=== PATIENT | male | born 1945 | race Caucasian/White ===

== ENCOUNTER 2018-06-30 07:29 | Emergency (ER) | payer MEDICARE, OTHER, SELFPAY ==
[2018-06-30] VITALS (7 sets, daily range): BP systolic 137–178; BP diastolic 80–90; PULSE 85–97; RESP 20–22; TEMP 36.7; O2SAT 90–95; BMI 29.7
--- NOTE | 2018-06-30 07:35 | ED.SOB ---
HPI - SOB/Dyspnea General Chief Complaint: Upper Respiratory Symptoms Stated Complaint: SOB; states cardiac ablasion done Time Seen by Provider: 06/30/18 07:33 Source: patient Mode of arrival: ambulatory Limitations: no limitations History of Present Illness Patient is a 72-year-old male here for evaluation of what he describes as not being able to take a deep breath. Last he underwent a ablation for the correction of atrial fibrillation. This was done at [facility]. He had a KELLY prior to that. He is currently on anticoagulation. He states that the procedure was successful. He states that since then he has had episodes where he feels like he cannot get a deep breath. He is not having any chest pain. No palpitations. He states that prior to the procedure he did have episodes similar to this but he feels like since the procedure they have become more frequent and lasting longer. He came in this morning because he had an episode that lasted longer than 45 min. Patient states that in the past he has been told that he had COPD but then another physician told him that he did not. He does have a smoking history. He also has sleep apnea but is not on a CPAP machine. Has not noticed any lower extremity swelling. Occasionally has problems with dyspnea on exertion. Related Data Home Medications Medication Instructions Recorded Confirmed simvastatin [Zocor] 20 mg PO HS #0 06/03/12 metformin 1,000 mg PO BIDCC #0 09/18/17 Previous Rx's Medication Instructions Recorded furosemide [Lasix] 40 mg PO DAILY PRN #60 tab 06/30/18 Allergies Allergy/AdvReac Type Severity Reaction Status Date / Time No Known Drug Allergies Allergy Verified 06/30/18 07:50 Review of Systems Constitutional Denies fever(s) and Denies headache(s) Eyes Denies diplopia ENT Ears, Nose, Mouth, and Throat: Denies vertigo and Denies headache(s) Cardiovascular Denies chest pain, Denies syncope, Denies palpitations, Reports dyspnea and Reports dyspnea on exertion Respiratory Reports cough, Reports dyspnea and Reports dyspnea on exertion Gastrointestinal Gastrointestinal: Denies change in bowel habits Genitourinary Denies dysuria Musculoskeletal Denies myalgias and Denies arthralgias Integumentary/Breasts Denies lesions and Denies rash Neurologic Denies vertigo, Denies syncope and Denies headache(s) Endocrine Denies palpitations Hematologic/Lymphatic Comments: Currently on anticoagulation Allergic/Immunologic Denies urticaria PFSH Medical History Atrial fibrillation (Acute) Sleep apnea (Acute) Social History Smoking Status: Former smoker Exam Initial Vital Signs Initial Vital Signs: Vital Signs Temperature 98.1 F 06/30/18 07:33 Pulse Rate 90 06/30/18 07:33 Respiratory Rate 20 06/30/18 07:33 Blood Pressure 178/90 H 06/30/18 07:33 Pulse Oximetry 90 L 06/30/18 07:33 Const General: cooperative, comfortable, well developed, well groomed and No acute distress Orientation: alert, awake and oriented x3 HENMT Head: normal to inspection and normocephalic Resp Effort & Inspection: not labored, no retractions, tachypneic, no tracheal deviation and No prolonged expiratory phase Auscultation: rhonchi Cardio Rate: regular rate Rhythm: regular rhythm Pulses: radial pulses present GI Inspection: distended Palpation: soft, No firm and No tender Skin Lesions: no lesions Rashes: no rashes Neuro General: alert, awake and oriented x3 Extrem General: normal to inspection and capillary refill normal Psych Appearance: grossly normal and well kempt Course Orders Ordered: ED Orders 06/30/18 07:34 XR chest 1V Stat EKG-12 Lead Stat 06/30/18 07:40 RT Respiratory Nebulizer Treat PRN 06/30/18 07:46 B Type Natriuretic Peptide Stat Complete Blood Count AUTO DIFF Stat Comprehensive Metabolic Panel Stat Troponin I Stat 06/30/18 08:48 RT Respiratory Nebulizer Treat PRN Albuterol/Ipratropium (Duoneb) 3 ml INH NOW PRN PRN Reason: PRN WHILE IN ER. Stop: 07/01/18 07:40 Last Admin: 06/30/18 07:50 Dose: 3 ml Discontinued Medications Albuterol/Ipratropium (Duoneb) 3 ml INH NOW ONE Stop: 06/30/18 08:50 Last Admin: 06/30/18 07:40 Dose: 3 ml Furosemide (Lasix) 40 mg IV NOW ONE Stop: 06/30/18 09:06 Last Admin: 06/30/18 09:50 Dose: 40 mg Vital Signs - 8 hr 06/30/18 07:33 06/30/18 07:40 06/30/18 07:50 Temperature 98.1 F Pulse Rate 90 97 H 95 H Respiratory Rate 20 22 20 Blood Pressure 178/90 H Blood Pressure [Right Arm] Pulse Oximetry 90 L 93 95 06/30/18 09:30 06/30/18 10:00 Temperature Pulse Rate 95 H Respiratory Rate 22 Blood Pressure Blood Pressure [Right Arm] 141/86 H 137/80 Pulse Oximetry 92 MDM - SOB/Dyspnea Medical Records Attestation: I reviewed the patient's medical records. Lab Data Attestation: I reviewed the patient's lab results. Result diagrams: 06/30/18 07:46 06/30/18 07:46 Lab Results 06/30/18 06/30/18 Range/Units 07:46 07:46 WBC 10.6 (4.5-11.0) X10^3/uL RBC 3.99 L (4.5-5.9) X10^6/uL Hgb 13.0 L (13.5-17.5) g/dL Hct 38.2 L (41-53) % MCV 95.7 (80-100) fL MCH 32.7 (26-34) PG MCHC 34.2 (30-36) % RDW 13.4 (11.6-14.8) % Plt Count 170 (150-400) X10^3/uL Neut % (Auto) 84.0 H (50-75) % Lymph % (Auto) 6.4 L (25-40) % Hendricks % (Auto) 8.1 (3-14) % Eos % (Auto) 1.0 L (2-4) % Baso % (Auto) 0.5 (0-2) % Neut # (Auto) 9000 H (4549-5536) /uL Lymph # (Auto) 700 L (9848-8640) /uL Hendricks # (Auto) 900 (0-900) /uL Eos # (Auto) 100 (0-450) /uL Baso # (Auto) 100 (0-100) /uL Sodium 136 L (137-145) mmol/L Potassium 4.5 (3.4-5.1) mmol/L Chloride 100 (98-107) mmol/L Carbon Dioxide 29 (22-32) mmol/L BUN 16 (9-20) mg/dL Creatinine 0.80 (0.66-1.25) mg/dL Estimated GFR > 60.0 (>60) mL/min BUN/Creatinine Ratio 20.0 (6-22) Glucose 177 H (80-110) mg/dL Calcium 9.0 (8.4-10.2) mg/dL Total Bilirubin 1.6 H (0.2-1.3) mg/dL AST 27 (17-59) IU/L ALT 31 (21-72) IU/L Alkaline Phosphatase 68 (38-126) U/L Troponin I 0.501 H* (0.01-0.034) ng/mL B-Natriuretic Peptide 164 H (<100) Total Protein 7.8 (6.3-8.2) g/dL Albumin 4.4 (3.5-5.0) g/dL Globulin 3.4 (1.7-4.1) g/dL Albumin/Globulin Ratio 1.3 (1.0-2.8) Imaging Data Chest x-ray: Radiologist's impression: [address] [address] XRay Report Signed Patient: Mahin Valverde [facility]#: [id number] : 8Acct:[id number] Age/Sex: 72 / MDate of Service: 06/30/18 Loc: ED Accession Number: [id number] Procedure: XR chest 1V Ordering Provider: Alex Hugo D.O. PROCEDURE: XR CHEST 1V INDICATIONS: SOB TECHNIQUE: One view of the chest was acquired. COMPARISON: None. FINDINGS: Surgical changes and devices: None. Lungs and pleura: No pleural effusions or pneumothorax. Diffuse interstitial infiltrates bilaterally. Mediastinum: Mediastinal contours appear normal. Heart size is within normal limits. Bones and chest wall: No suspicious bony lesions. Overlying soft tissues appear unremarkable. IMPRESSION: Bilateral diffuse interstitial infiltrates may be secondary to interstitial pneumonia or pulmonary edema. Dictated by: Jacky Garcia M.D. on 06/30/2018 at 8:42 Approved by: Jacky Garcia M.D. on 06/30/2018 at 8:43 ECG Data Attestation: I personally reviewed and interpreted this ECG as follows: Prior ECG tracings: not available for review Interpretation: Sinus rhythm Ventricular rate of 93 Frequent PACs Normal axis Normal QRS Normal QTC No ST T wave changes MDM Narrative Medical decision making narrative: Patient had vast improvement if not resolution of his symptoms after 2 nebulizer treatments here in the emergency department. He is not having any chest pain. He does not have any ischemic changes on his EKG. Does have an elevated troponin however after discussion with Dr. Mayer with Cardiology at [facility] I do suspect that this is secondary to the ablation that he had last . I suspect his symptoms today are pulmonary. He is on anticoagulation so I have low suspicion for pulmonary embolism. He was given Lasix here in the emergency department after recommendation for Dr. Mayer. Will send home with a prescription for this medication. Also sent home with a prescription for an albuterol inhaler. He has an appointment with his development coordinator on Sunday of this week. He was given return precautions. Both he and his family who were at bedside expressed understanding and agreement plan. Discharge Plan Departure Patient Disposition: Home Clinical Impression: Breath shortness Instructions: DI for Shortness of Breath Activity Restrictions/Additional Instructions: Keep your scheduled appointment with your development coordinator this week. Take the Lasix/furosemide like we discussed. Also use the albuterol like we discussed. Return to the emergency department for any new or worsening symptoms Prescriptions: New furosemide [Lasix] 20 mg tablet 40 mg PO DAILY PRN (Reason: shortness of breath) Qty: 60 RF: 0 No Action simvastatin [Zocor] 20 MG tablet 20 mg PO HS Qty: 0 RF: 0 metformin 1,000 MG tablet 1,000 mg PO BIDCC Qty: 0 RF: 0
[2018-06-30] MEDS: ALBUTEROL/IPRATROPIUM 3 ML AMPUL INH ×2 (07:40→07:50)
--- NOTE | 2018-06-30 07:55 | PC.NURSE ---
on arrival dyspneic on exertion, sat 90% on ra, breath sound diminished, denies lower ext edema. denies coughing.
[2018-06-30 07:56] LABS: Add Manual Diff / Slide Review NO; Basophils Absolute Auto 100 /uL (0-100); Basophils Percent Auto 0.5 % (0-2); Eosinophils Absolute Auto 100 /uL (0-450); Hematocrit 38.2 % (41-53); Lymphocytes Absolute Auto 700 /uL (1100-4500); Lymphocytes Percent Auto 6.4 % (25-40); Mean Corpuscular HGB Conc 34.2 % (30-36); Mean Corpuscular Hemoglobin 32.7 PG (26-34); Mean Corpuscular Volume 95.7 fL (80-100); Monocytes Absolute Auto 900 /uL (0-900); Monocytes Percent Auto 8.1 % (3-14); Neutrophils Absolute Auto 9000 /uL (1500-7000); Platelet Count 170 X10^3/uL (150-400); Red Blood Cell Count 3.99 X10^6/uL (4.5-5.9); Red Cell Distribution Width 13.4 % (11.6-14.8); White Blood Cell Count 10.6 X10^3/uL (4.5-11.0)
[2018-06-30 08:06] LABS: Alanine Aminotransferase 31 IU/L (21-72); Albumin 4.4 g/dL (3.5-5.0); Albumin Globulin Ratio 1.3 (1.0-2.8); Alkaline Phosphatase 68 U/L (38-126); Aspartate Aminotransferase 27 IU/L (17-59); Bilirubin Total 1.6 mg/dL (0.2-1.3); Blood Urea Nitrogen 16 mg/dL (9-20); Carbon Dioxide 29 mmol/L (22-32); Chloride 100 mmol/L (98-107); Estimated Glomerular Filt Rate > 60.0 mL/min (>60); Globulin 3.4 g/dL (1.7-4.1); Glucose 177 mg/dL (80-110); HEMOLYSIS < 15 (0-50); Potassium 4.5 mmol/L (3.4-5.1); Sodium 136 mmol/L (137-145); Total Protein 7.8 g/dL (6.3-8.2)
[2018-06-30 08:22] LABS: B Type Natriuretic Peptide 164 (<100)
[2018-06-30 08:41] LABS: Troponin I 0.501 ng/mL (0.01-0.034)
[2018-06-30] MEDS: FUROSEMIDE 40 MG/4 ML VIAL IV (09:50)
--- NOTE | 2018-06-30 10:56 | PC.NURSE ---
pt ambulation to see if he was short of breath with exertion. He denied shortness of breath on room air and made it to the bathroom , then around the unit. Dr. Hugo informed of status.
--- NOTE | 2018-06-30 11:00 | PC.NURSE ---
lungs clear except left lower lobe with coarse crackles in base. recent hx of ablation, usually walks 2-3 miles a day and walked yesterday for 1/2 mile and denied shortness of breath. pt on room air. reports albuterol helps but not when he takes it at home, discovered he doesn't use a spacer. Dr. Hugo aware and ordered him spacer teaching done by Ludmila in [place] today prior to discharge.
== END 2018-06-30 10:42 | disposition home or self-care (01) ==
PROVIDERS: Emergency Provider Emergency Medicine; Family Provider Family Medicine; PCP Family Medicine
DX: R06.09 Other forms of dyspnea (principal); I48.91 Unspecified atrial fibrillation
CPT/HCPCS: 36591; 71045; 80053; 83880; 84484; 85025; 93005; 94640; 94760; 99283; 99284; J1940

== ENCOUNTER 2019-07-12 13:44 | Emergency (ER) | payer MEDICARE, OTHER, SELFPAY ==
[2019-07-12 14:06] VITALS: BP 158/87; PULSE 85; RESP 16; TEMP 36.8; O2SAT 96; BMI 27.3
--- NOTE | 2019-07-12 15:01 | PC.NURSE ---
reports, remi sweet, sxs for one week, denies pain, +able to see, denies injury. only uses reading glasses.
--- NOTE | 2019-07-12 16:22 | ED.EYEPROB ---
HPI - Eye Problem General Chief complaint: Eye Problems Stated complaint: poss det retina phys reff Time Seen by Provider: 07/12/19 14:24 Source: patient Mode of arrival: Ambulatory Limitations: no limitations History of Present Illness HPI Narrative: 73-year-old gentleman presents from his primary care physician's clinic in [place] with complaints of visual status changes in the left eye. Symptoms began approximately 6 days ago with more flashes in the lateral portion of his visual field. Then had some central blurring that would occasionally clear and was positional. There was no pain through any of this. He notes that if he turns his head quickly that the visual field is more impaired and the flashes are more impressive. Over the last 2 days symptoms have been getting a bit better. Related Data Home Medications Medication Instructions Recorded Confirmed simvastatin [Zocor] 20 mg PO HS #0 06/03/12 metformin 1,000 mg PO BIDCC #0 09/18/17 Previous Rx's Medication Instructions Recorded furosemide [Lasix] 40 mg PO DAILY PRN #60 tab 06/30/18 Allergies Allergy/AdvReac Type Severity Reaction Status Date / Time No Known Drug Allergies Allergy Verified 07/12/19 14:06 Review of Systems Review of Systems Narrative: Denies ? fever ? cough ? cold ? chills ? chest pain ? dyspnea ? orthopnea ? wheezing ? abdominal pain ? change to bowel or bladder habits ? nausea vomiting ? skin changes ? rashes Patient History Medical History Atrial fibrillation (Acute) Sleep apnea (Acute) Social History Smoking Status: Former smoker Smoking Status: Former smoker alcohol intake frequency: holidays/special occasions only Substance Use Type: does not use Exam Narrative Exam Narrative: General: Healthy appearing, in no acute distress. Able to give a complete and coherent history. Well-nourished well-developed HEENT: Moist mucous membranes, normal sclera with reactive pupils, visual acuity 20/40 both eyes and each individual eye Neck: No JVD, supple Respiratory: Lungs are clear to auscultation, no wheezing no rales no rhonchi. Full and symmetrical air movement Cardiac: Regular rate and rhythm no murmurs no bruits Abdomen: Soft nontender good bowel tones, no flank pain Skin: Warm and dry, no rashes Neurologic: Grossly neurologically intact with no obvious asymmetries or abnormalities Extremities: No trauma, well perfused Psych: Cooperative, appropriate insight and affect Bedside ultrasound of the left eye is done. No suggestion of significant retinal detachment is appreciated Initial Vital Signs Initial Vital Signs: Vital Signs Temperature 98.2 F 07/12/19 14:06 Pulse Rate 85 07/12/19 14:06 Respiratory Rate 16 07/12/19 14:06 Blood Pressure 158/87 H 07/12/19 14:06 Pulse Oximetry 96 07/12/19 14:06 Course Vital Signs Vital signs: Vital Signs - 8 hr 07/12/19 14:06 07/12/19 16:32 Temperature 98.2 F Pulse Rate 85 82 Respiratory Rate 16 16 Blood Pressure 158/87 H Blood Pressure [Right Arm] 158/76 H Pulse Oximetry 96 96 [facility] - Eye Problem Medical Records Attestation: I reviewed the patient's medical records. [facility] Narrative Medical decision making narrative: Reviewed findings with Dr. Maldonado, ophthalmology. He felt that this was most consistent with a vitreous detachment in light of maintain visual acuity and minimal pain. With shared decision-making between and myself, enterostomal nurse and the patient we opted to have him discharged home with follow-up in Dr. Maldonado commands office on Sunday. Patient will be instructed to return to the emergency room with any acute changes and to contact Dr. Maldonado through his office phone number if needed. Discharge Plan Departure Patient Disposition: Home Clinical Impression: Posterior vitreous detachment of left eye Discharge Date/Time: 07/12/19 16:37 Instructions: DI for Vitreous Detachment Activity Restrictions/Additional Instructions: Thank you for coming in today and following all instructions From her description and with your exam in the emergency department I believe that you have a vitreous detachment (the liquid jelly part of your eyeball is slightly pulling away from the back retinal part of your eyeball) At this point it is safe for you to go home If you have worsening symptoms or acute changes to her vision he need to contact Dr. Stovall is office. I spoke with Dr. Maldonado, his partner, about this today. Assuming everything continues to improve, Dr. Maldonado wanted you to come into the office Sunday. He suggested coming in at any time and you will be worked in between patients to make sure that everything is healing appropriately Their office phone number is [phone] If you have any other questions problems or concerns you are always welcome in the emergency department Prescriptions: No Action simvastatin [Zocor] 20 MG tablet 20 mg PO HS Qty: 0 RF: 0 metformin 1,000 MG tablet 1,000 mg PO BIDCC Qty: 0 RF: 0 furosemide [Lasix] 20 mg tablet 40 mg PO DAILY PRN (Reason: shortness of breath) Qty: 60 RF: 0 Referrals: Mey Meza DO [Primary Care Provider] -
[2019-07-12 16:32] VITALS: BP 158/76; PULSE 82; RESP 16; O2SAT 96
== END 2019-07-12 16:37 | disposition home or self-care (01) ==
PROVIDERS: Emergency Provider Emergency Medicine; Family Provider Family Medicine; PCP Family Medicine; Referring Provider Nurse Practitioner Family
DX: H43.812 Vitreous degeneration, left eye (principal)
CPT/HCPCS: 99282

== ENCOUNTER → 2020-03-29 14:43 | Outpatient (CLI) | payer MEDICARE, OTHER, SELFPAY ==
[2020-03-29 15:58] LABS: BUN Creatinine Ratio 18.8 (6-22); Blood Urea Nitrogen 18 mg/dL (9-20); Estimated Glomerular Filt Rate > 60.0 mL/min (>60)
== END ==
PROVIDERS: Family Provider Family Medicine; PCP Family Medicine; Referring Provider Urology; Visit Provider Urology
DX: Z85.51 Personal history of malignant neoplasm of bladder (principal); N28.1 Cyst of kidney, acquired; R31.0 Gross hematuria
CPT/HCPCS: 36415; 82565; 84520

== ENCOUNTER → 2020-04-05 10:40 | Outpatient (CLI) | payer MEDICARE, OTHER, SELFPAY ==
--- NOTE | 2020-04-05 | DI.CT.S_ITS ---
PROCEDURE: CT ABDOMEN PELVIS WO/W CON INDICATIONS: Gross hematuria TECHNIQUE: Optional 5 mm thick noncontrast images acquired from the diaphragm to the symphysis pubis. After the administration of intravenous contrast, 5 mm thick images acquired from the diaphragm to the symphysis pubis after a 10-minute delay. 2 mm thick coronal and sagittal reformats were then performed of the kidneys and ureters. For radiation dose reduction, the following was used: automated exposure control, adjustment of mA and/or kV according to patient size. COMPARISON: Outside Film, US, US RENAL COMPLETE, 03/12/2019, 13:31. [facility], CT, IVP (ABD & PEL WWO CONTRAST), 08/30/2015, 10:33. FINDINGS: Image quality: Excellent. Lung bases: Lung bases are clear. Heart size is normal. Urinary system: Right kidney: There is moderate to severe right hydronephrosis. A tiny renal pelvic calcification may be vascular. Right ureter: Dilated to the level of the acetabulum, where there is enhancing wall thickening involving the ureter and a focal enhancing mass nearly filling the entirety of the ureter. 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 Left kidney: Interval increase in size of an exophytic middle pole hyperdense cyst, previously measuring 2.1 cm and currently measuring 3.0 cm. A lower pole peripelvic cyst has also increased in size, currently measuring 2.0 cm. No hydronephrosis. No left renal stones. No enhancing masses. Left ureter: Subtle thickening of the wall of the distal ureter, just slightly above the bladder. Reference image 91/5 (coronal reformats). Findings may potentially represent a distal ureteral cancer. Bladder: No bladder stones. No bladder wall thickening. Prostate is somewhat enlarged. Other solid organs: Liver is normal in size and enhancement. Gallbladder is unremarkable. Biliary system is non dilated. Pancreas enhances normally. Spleen is normal in size and enhancement. No adrenal nodules. Peritoneum and bowel: Bowel loops demonstrate normal wall thickness and caliber. No free fluid or air. Nodes and vessels: No retroperitoneal or mesenteric adenopathy by size criteria. Aorta and inferior vena cava are normal in size. Abdominal wall: No ventral hernias. Pelvis: No pathologic free pelvic fluid. No inguinal hernias or adenopathy. Bones: No suspicious bony lesions. No vertebral body compression fractures. IMPRESSION: 1. 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 2. Distal left ureteral thickening may potentially represent a 2nd transitional carcinoma versus chronic inflammatory change. Dictated by: Solis De lOiveira M.D. on 04/05/2020 at 12:19 Approved by: Solis De Oliveira M.D. on 04/05/2020 at 12:28
== END ==
PROVIDERS: Family Provider Family Medicine; PCP Family Medicine; Referring Provider Urology; Visit Provider Urology
DX: R31.0 Gross hematuria (principal); N28.9 Disorder of kidney and ureter, unspecified; N28.1 Cyst of kidney, acquired; N13.30 Unspecified hydronephrosis; Z85.51 Personal history of malignant neoplasm of bladder
CPT/HCPCS: 74178; Q9967

== ENCOUNTER 2022-10-09 07:15 | Day surgery (SDC) | payer MEDICARE, OTHER, SELFPAY ==
--- NOTE | 2022-10-09 | PATH_ITS ---
[facility] Accession Number: [id number] No. of containers..03 Tissue . 01 Material submitted: . PART A: colon - ASCENDING POLYP PART B: colon - TRANSVERSE POLYP PART C: sigmoid colon - SIGMOID POLYP . 01 Diagnosis: A. Ascending Colon, Polypectomy: Tubular adenoma. Additional levels were examined. . B. Transverse Colon, Polypectomy: Tubular adenoma. . C. Sigmoid Colon, Polypectomy: Tubular adenoma. [facility] 10/13/2022 1434 Local . 01 Electronically signed: . Mi Barroso MD, Pathologist NPI- [id number] . 01 Gross description: . Part A: ASCENDING POLYP: Received in formalin is 1 fragment(s) of baez, soft tissue measuring 0.7 x 0.1 x 0.1 cm submitted entirely in 1 cassette(s) Part B: TRANSVERSE POLYP: Received in formalin is 1 fragment(s) of baez, soft tissue measuring 0.6 x 0.5 x 0.5 cm which is bisected and submitted entirely in 1 cassette(s) Part C: SIGMOID POLYP: Received in formalin are 2 fragment(s) of baez, soft tissue measuring 0.5 x 0.5 x 0.4 cm to 0.3 x 0.3 x 0.3 cm submitted entirely in 1 cassette(s) /[facility] 10/10/2022 1634 Local . 01 Pathologist provided ICD-10: D12.2, D12.3, D12.5 . 01 CPT . 201553, 218078, 701408 Specimen Comment: A courtesy copy of this report has been sent to [phone] Performed at: 01 [facility] [address] [place] [address] [address], [place], [place] [id number] MD Elmo Montano MD Phone: [phone]
[2022-10-09 07:33] VITALS: BP 116/74; PULSE 106; RESP 20; TEMP 36.3; O2SAT 96; BMI 25.9
[2022-10-09] MEDS: LACTATED RINGERS 1,000 ML 100 ML IV (07:57)
--- NOTE | 2022-10-09 07:58 | P.HP_ITS ---
History of Present Illness History of Present Illness Date Patient Seen: 10/09/22 Time Patient Seen: 07:58 Chief complaint: Colonoscopy Narrative: I reviewed my recent office note. No significant changes. [facility] Medical History Atrial fibrillation Sleep apnea Surgical History History of bladder surgery History of nephrectomy, right Hx of tonsillectomy Social History household members: spouse Smoking Status: Current every day smoker alcohol intake: current Meds Home Medications and Allergies Home Medications Medication Instructions Recorded Confirmed Type simvastatin 20 mg tablet (Zocor) 20 mg PO HS ##0 06/03/12 10/09/22 History furosemide 20 mg tablet (Lasix) 40 mg PO DAILY PRN shortness of 06/30/18 10/09/22 Rx breath #60 tabs amlodipine 5 mg PO DAILY 10/09/22 10/09/22 History loratadine 10 mg tablet 10 mg PO DAILY 10/09/22 10/09/22 History rivaroxaban 20 mg tablet (Xarelto) 15 mg PO DAILY 10/09/22 10/09/22 History sotalol 80 mg tablet 80 mg PO DAILY 10/09/22 10/09/22 History Allergies Allergy/AdvReac Type Severity Reaction Status Date / Time No Known Drug Allergies Allergy Verified 07/12/19 14:06 Review of Systems Review of Systems ROS: Yes All systems reviewed with the patient and are negative except as otherwise documented Exam Vital Signs (past 8 hours): - 10/09/22 07:33 Temperature 97.3 F L Pulse Rate 106 H Respiratory Rate 20 Blood Pressure 116/74 Pulse Oximetry 96 Oxygen Delivery Method Room Air Oxygen Delivery Method Room Air Const General: cooperative HENMT Head: normal to inspection Eyes General: appearance normal, both eyes and all related structures Neck Neck: normal visual inspection Chest Chest: normal inspection of the chest Resp Effort & Inspection: normal respiratory effort Cardio Rate: regular rate GI Inspection: normal to inspection Skin General: no rashes or lesions noted Neuro General: patient alert and patient awake Extrem General: normal to inspection and no pedal edema Psych Appearance: grossly normal Assessment & Plan Assessment & Plan narrative: 77-year-old male with a personal history of colon polyps. Colonoscopy is pursued today. He is off his Xarelto more than 2 days.
--- NOTE | 2022-10-09 07:59 | PM.PREOP ---
Pre-operative Note Interval Note History & Physical reviewed/Exam performed by Physician: Yes Changes to H&P: No ASA Class (for procedural sedation): III
--- NOTE | 2022-10-09 09:13 | PM.OP.COLON ---
Operative Date/Time/Diagnoses Date of procedure: 10/09/22 Time of procedure: 09:14 Pre-op diagnosis: Colon polyps history Post-op diagnosis: same Procedure & Clinicians Study performed: Colonoscopy with hot snare polypectomy Same procedure as scheduled: Yes Indications: Colon polyp history Surgeon: Antony Wiliknson Procedure Notes SCOAP/Timeout: Done Procedure in detail: After the risks and benefits were explained, written and verbal informed consent was obtained. The patient was brought into the procedure room and placed into the left lateral decubitus position. Please see anesthesia note for sedation details. Digital rectal examination was accomplished. The scope was introduced into the patient and advanced under direct visualization to the cecum as identified by the appendiceal orifice and ileocecal valve. The scope was slowly withdrawn to carefully examine the mucosa for any defects or lesions. Comprehensive imaging was accomplished throughout the rectum including the dentate line. The colon was decompressed, the scope was then removed from the patient who tolerated the procedure well. Pediatric colonoscope bowel prep adequate Scope withdrawal time: 15 minutes Sedation minutes: 22 Complications: none Impression: Patient had a 5 mm polyp and an 8 mm polyp in the transverse colon removed with hot snare. There was a 5 mm polyp in the ascending removed with hot snare. In the sigmoid region there were 2 polyps ranging in size from 5-7 mm also removed with hot snare. No additional significant pathology was appreciated throughout. Endoscopic diagnosis Multiple colon polyps Post-procedure Plan for aftercare: 1. Await histopathology. 2. Consider repeat colonoscopy 3 years. 3. Okay to restart Xarelto in 2 days. Disposition: PACU
[2022-10-09 09:18] VITALS: BP 112/78; PULSE 96; RESP 15; TEMP 36.6; O2SAT 111
[2022-10-09 09:23] VITALS: BP 120/83; PULSE 106; RESP 12; O2SAT 97
[2022-10-09 09:33] VITALS: BP 142/83; PULSE 102; RESP 12; O2SAT 99
[2022-10-09 09:39] VITALS: BP 130/72; PULSE 93; RESP 17; O2SAT 100
[2022-10-09 09:44] VITALS: BP 128/73; PULSE 99; RESP 15; TEMP 36.5; O2SAT 100
== END 2022-10-09 10:06 | disposition home or self-care (01) ==
PROVIDERS: Family Provider Family Medicine; PCP Family Medicine; Referring Provider Internal Medicine Gastroenterology; Visit Provider Internal Medicine Gastroenterology
PROC: 0DJD8ZZ Inspection of Lower Intestinal Tract, Via Natural or Artificial Opening Endoscopic (ICD-10-PCS; CPT 45378; principal; 2022-10-09 08:30)
DX: Z12.11 Encounter for screening for malignant neoplasm of colon (principal); Z86.010 Personal history of colon polyps; D12.2 Benign neoplasm of ascending colon; Z80.0 Family history of malignant neoplasm of digestive organs; D12.3 Benign neoplasm of transverse colon; D12.5 Benign neoplasm of sigmoid colon
CPT/HCPCS: 45385; J2704

== ENCOUNTER → 2023-05-16 15:44 | Outpatient (CLI) | payer MEDICARE, OTHER, SELFPAY ==
--- NOTE | 2023-05-16 15:50 | DI.MRI.S_ITS ---
PROCEDURE: MR SHOULDER LT WO CON INDICATIONS: R/O ROTATOR CUFF SYNDROME TECHNIQUE: Noncontrast oblique coronal T2 fast spin echo with fat saturation, oblique sagittal T1 spin echo and T2 fast spin echo with fat saturation, axial T1 spin echo and T2 fast spin echo with fat saturation through the shoulder. COMPARISON: None. FINDINGS: Image quality: Excellent. Rotator cuff: Low-grade articular surface partial-thickness tear involving distal supraspinatus at its insertion on the humeral head is seen. Distal infraspinatus tendinosis is seen. The subscapularis tendon is intact. No full-thickness rotator cuff tendon rupture. Sagittal images demonstrate mild supraspinatus muscle atrophy. Bones and bursae: Heterogeneous marrow signal throughout visualized left shoulder osseous structures is seen likely represent hematopoietic marrow. No discrete aggressive appearing bony lesion is seen. No acute fracture or dislocation. Aaxi-rw-syvlmxfr acromioclavicular joint osteoarthritic changes are seen with joint space narrowing and small downward osteophyte formation depressing the musculotendinous junction of supraspinatus. The acromion demonstrates conventional anatomy, without an os acromiale. No pathologic subacromial-subdeltoid or subcoracoid bursal fluid is present. Capsule and soft tissues: Fraying of superior anterior labrum with signal abnormality at 12 to 1 o'clock position is seen suggestive of focal superior anterior labral tear. The long head of the biceps tendon demonstrates normal location and morphology. The rotator interval appears normal, without fibrosis. The coracohumeral ligament is normal in thickness. IMPRESSION: 1. Low-grade articular surface partial-thickness tear involving distal supraspinatus. Distal infraspinatus tendinosis. No full-thickness rotator cuff tendon rupture. Mild supraspinatus muscle atrophy. 2. Diffusely heterogeneous marrow signal throughout visualized osseous structures. No discrete aggressive appearing bony lesion. Finding likely represent hematopoietic marrow. Gvhc-iq-ihntphip acromioclavicular joint osteoarthritis. No acute fracture or dislocation. 3. Finding is suggestive of very subtle superior anterior labral tear at 12 to 1 o'clock position. Dictated by: Pedro Lakhani M.D. on 05/16/2023 at 16:53 Approved by: Pedro Lakhani M.D. on 05/16/2023 at 16:56
== END ==
PROVIDERS: Family Provider Family Medicine; PCP Family Medicine; Referring Provider Orthopaedic Surgery; Visit Provider Orthopaedic Surgery
DX: M75.112 Incomplete rotator cuff tear or rupture of left shoulder, not specified as traumatic (principal); M19.012 Primary osteoarthritis, left shoulder
CPT/HCPCS: 73221

== ENCOUNTER → 2024-02-29 14:52 | Outpatient (CLI) | payer MEDICARE, OTHER, SELFPAY ==
--- NOTE | 2024-02-29 14:54 | DI.CT.S_ITS ---
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 1 mm lung window, 5 mm thick coronal and sagittal and 7 mm axial MIP reformats were then acquired. For radiation dose reduction, the following was used: automated exposure control, adjustment of mA and/or kV according to patient size. COMPARISON: CT abdomen pelvis with and without contrast 04/05/2020 report (unsuccessful image retrieval) FINDINGS: Image quality: Diagnostic, although evaluation is limited in the absence of intravenous contrast. Thyroid: Within normal limits. Cardiac: Mild left atrial enlargement, otherwise, the heart size size is within normal limits. No pericardial effusion. Mild aortic valve, mitral valve, and coronary artery calcifications. Aorta: Thoracic aortic diameter within normal limits. Pulmonary Artery: Main pulmonary artery diameter within normal limits. Lungs: Upper lobe predominant mild paraseptal and centrilobular emphysema. The following pulmonary nodules are identified on series 3: * Image 165 - 5 mm bronchovascular solid right upper lobe nodule * Image 176 - 5 mm right lower lobe solid nodule * Image 189 - 7 mm left lower lobe ground-glass nodule * Image 233 - 5 mm perifissural solid right lower lobe nodule Pleura: No pneumothorax or pleural effusion. Airways: The trachea and mainstem bronchi are patent. Lymph Nodes: No mediastinal, hilar, or axillary lymphadenopathy. Small hilar and mediastinal nodes, the largest of which is a 0.7 cm AP window node (2/30) Esophagus: Within normal limits. Bones: No acute osseous abnormality. Upper Abdomen: Partially identified left superomedial exophytic hyperdense 3.2 cm lesion, likely representing a hemorrhagic cyst (/65). IMPRESSION: 1. 5-7 mm solid and ground-glass nodules. No focal lung consolidation or mass. 2. Nonenlarged mediastinal and hilar nodes, which may be reactive. 3. Mild left atrial enlargement and arterial/valvular calcifications. Dictated by: Asael Maciel M.D. on 03/03/2024 at 9:15 Approved by: Asael Maciel M.D. on 03/03/2024 at 9:40
== END ==
PROVIDERS: Family Provider Family Medicine; PCP Family Medicine; Referring Provider Urology; Visit Provider Urology
DX: C66.2 Malignant neoplasm of left ureter (principal); R91.8 Other nonspecific abnormal finding of lung field; I25.10 Atherosclerotic heart disease of native coronary artery without angina pectoris; I77.89 Other specified disorders of arteries and arterioles
CPT/HCPCS: 71250

== ENCOUNTER → 2024-03-12 18:59 | Outpatient (CLI) | payer MEDICARE, OTHER, SELFPAY ==
--- NOTE | 2024-03-12 19:03 | DI.MRI.S_ITS ---
PROCEDURE: MR ABDOMEN RENAL PROTOCOL INDICATIONS: UROTHELIAL CARCINOMA LEFT DISTAL URETER TECHNIQUE: Coronal HASTE through abdomen and pelvis; axial 2D FLASH in- and [id number] (with and without fat saturation), and breath-hold T2 FSE from the hepatic dome to the bottom of the kidneys. Coronal HASTE MR urogram of kidneys and bladder. Dynamic coronal VIBE during IV gadolinium administration; postgadolinium axial VIBE or 2D FLASH with fat saturation from the hepatic dome through the kidneys. COMPARISON: [facility], CT, CT ABDOMEN PELVIS WO/W CON, 04/05/2020, 10:50. FINDINGS: Image quality: Diagnostic. Kidneys and Ureters: The right kidney is absent. There is artifact surgical clips in the right renal fossa. No suspicious soft tissue in the right renal fossa. The left kidney is normal size and demonstrates moderate, chronic appearing hydronephrosis. 3.3 x 3.8 cm exophytic, unilocular, thin wall mass with mild T1 hyperintensity and T2 isointensity is arising from the anterior midpole. T1 hyperintense proteinaceous cyst measuring a cm arises from the lateral midpole. An area measuring 3.4 cm is present in the upper lateral renal parenchyma demonstrating restricted diffusion and slight hypoenhancement on arterial phase imaging signal is otherwise fairly isointense to parenchyma on T1 and T2 phases. The proximal left ureter just beyond the UVJ is tortuous, but demonstrates eccentric, enhancing circumferential wall thickening with marked narrowing of the lumen for a length of about 1.8 cm. The remainder of the proximal to mid ureter is diffusely dilated. Mild diffuse urothelial enhancement of nearly its entire length. In the distal ureter, near the level of the pelvic inlet, there is another 2.8 cm length segment of enhancing circumferential wall thickening resulting in luminal narrowing. The remainder of the distal ureter to the UVJ is normal caliber. In the expected location the right ureterovesicular junction, there is an enhancing mass measuring 1.8 cm per also demonstrating restricted diffusion. No definite bladder abnormalities. OTHER: Lung bases: Unremarkable. Liver: No solid mass. Gallbladder: No wall thickening. Biliary ducts: No biliary dilation. Pancreas: No ductal dilation. Spleen: Size is within normal limits. Small lower pole hemangioma. Adrenal Glands: No adrenal nodules. Stomach and Bowel: Partially distended stomach, small bowel loops, and visible loops of colon are within normal limits. No obstructions. Peritoneum: No free fluid or fluid collections. No significant intraperitoneal nodularity. Ventral Wall: No hernia. Abdominal and pelvic Nodes: No bulky retroperitoneal or mesenteric adenopathy. No visible pelvic adenopathy. Vessels: Aorta and inferior vena cava are normal in size. Pelvis: No suspicious urothelial thickening of the urinary bladder and no enhancing intraluminal masses. Prostate gland is mildly enlarged. No visible inguinal hernias. Bones: No aggressive osseous abnormality. IMPRESSION: Moderate left hydronephrosis and two discrete stricture in lesions, one of the proximal and one in the distal left ureter. These demonstrate enhancement and restricted diffusion suspicious for neoplasm. The right ureterovesicular junction ureteral stump also demonstrates enhancement and restricted diffusion, suspicious for local recurrence. 3.4 cm abnormal segment of parenchyma in the upper pole left kidney demonstrating restricted diffusion but no other significant abnormalities. This is nonspecific, but in the setting urothelial neoplasm, is suspicious for upper tract disease. No adenopathy. Dictated by: Marie Duron M.D. on 03/13/2024 at 9:05 Approved by: Marie Duron M.D. on 03/13/2024 at 9:36
== END ==
PROVIDERS: Family Provider Family Medicine; PCP Family Medicine; Referring Provider Urology; Visit Provider Urology
DX: C66.2 Malignant neoplasm of left ureter (principal); N13.30 Unspecified hydronephrosis; Z90.5 Acquired absence of kidney
CPT/HCPCS: 74183; A9579

== ENCOUNTER → 2024-04-07 10:43 | Outpatient (CLI) | payer MEDICARE, OTHER, SELFPAY | LOC: LAB 10:45 | PROVIDERS: Family Provider Family Medicine; PCP Family Medicine; Referring Provider Urology; Visit Provider Urology | DX: R31.9 Hematuria, unspecified (principal); C66.2 Malignant neoplasm of left ureter | CPT/HCPCS: 87086 ==

== ENCOUNTER → 2024-06-03 13:06 | Outpatient (CLI) | payer MEDICARE, OTHER, SELFPAY ==
[2024-06-03 13:32] LABS: Estimated Glomerular Filt Rate 10 mL/min (>60)
== END ==
PROVIDERS: Radiology Diagnostic Radiology; Family Provider Family Medicine; PCP Family Medicine; Referring Provider Physician Assistant; Visit Provider Physician Assistant
DX: C66.2 Malignant neoplasm of left ureter (principal)
CPT/HCPCS: 36415; 82565

== ENCOUNTER → 2024-06-05 09:34 | Outpatient (CLI) | payer MEDICARE, OTHER, SELFPAY ==
--- NOTE | 2024-06-05 09:36 | DI.CT.S_ITS ---
PROCEDURE: CT CHEST ABD PEL W CON INDICATIONS: Urothelial carcinoma of left distal ureter TECHNIQUE: After the administration of intravenous contrast, 5 mm thick sections acquired from the lung apices to the symphysis. 5 mm coronal and sagittal reformats were performed, with additional 7 mm MIP reformats through the lungs. For radiation dose reduction, the following was used: automated exposure control, adjustment of mA and/or kV according to patient size. COMPARISON: [facility], CT, CT ABDOMEN PELVIS WO/W CON, 04/05/2020, 10:50. [facility], CT, CT CHEST WO CON, 02/29/2024, 15:56. [facility], MR, MR ABDOMEN RENAL PROTOCOL, 03/12/2024, 19:24. FINDINGS: Image quality: Excellent. CHEST: Lower Neck: No enlarged lymph nodes. Thyroid: No thyroid nodules which require sonographic follow up, per consensus guidelines. Axillae: No enlarged lymph nodes. Chest Wall: Unremarkable. Lungs and Pleura: No pneumothorax but there are now bilateral pleural effusions moderate in size, without definite pleural thickening or enhancement. Within the posterior right upper lobe, midlung level, and also within the right middle lobe there is alveolar infiltration to the degree that pneumonia would be suspected. At each posterior lower lobe additional atelectasis and mild pneumonia is suspected. This degrades ability of the study to detect small pulmonary metastatic lesions. Heart: Heart size is normal. No pericardial effusion. Thoracic Vessels: The aorta and pulmonary arteries demonstrate normal size. Mediastinum and Tasia: No enlarged lymph nodes. Esophagus: No wall thickening. No hiatal hernia. ABDOMEN: Liver: No solid mass. Gallbladder: No radiopaque gallstones or wall thickening. Biliary ducts: No biliary dilation. Pancreas: No ductal dilation. Spleen: Size is within normal limits. Note is made of a small enhancing focus within the inferior spleen, which has changed positioning due to left nephrectomy. Prior MRI 05/16/23 had also shown this small focus, presumably a splenic hemangioma. It measures approximately 8 mm in maximal dimension. Adrenal Glands: No adrenal nodules. Kidneys and Ureters: There has been prior right nephrectomy and ureteral excision. Interval new left nephrectomy has been performed and presumably also left ureteral excision. Stomach and Bowel: Normal colonic caliber, without significant wall thickening. Peritoneum: There is a small amount of abnormal intraperitoneal fluid but no definite peritoneal enhancement or nodular thickening is found.. No free air. Ventral Wall: No significant ventral hernia. Abdominal Nodes: No retroperitoneal or mesenteric adenopathy by size criteria. Vessels: Aorta and inferior vena cava are normal in size. PELVIS: Pelvic Organs: Unremarkable. Bladder: No bladder wall thickening, accounting for underdistention. Pelvic Nodes: No enlarged lymph nodes. Miscellaneous: No inguinal hernias are seen. A slight amount of peritoneal fluid is seen within the pelvis. The bladder is not distended. Bones: No aggressive osseous abnormality. IMPRESSION: 1. Interval left nephrectomy and presumed left ureterectomy in this patient who has undergone prior right nephrectomy and ureterectomy. Bladder remains, not distended, free of identifiable urothelial mass. 2. Moderate bilateral pleural effusions appear free flowing posteriorly and water in density, simple in character. No CT evidence of pulmonary metastatic disease or pleural carcinomatosis. 3. Through the abdomen and pelvis no adenopathy is found. Incidental note is made of a small homogeneously enhancing nodule within the inferior margin of the spleen, consistent with a small benign hemangioma. Attention to this region on follow-up CT scanning is anticipated. 4. Bilateral mild pneumonia suspected given the pattern of alveolar infiltration that is seen, heterogeneous and present bilaterally. This limits quality of visualization for accurate assessment of the lung parenchyma for presence of metastatic disease. None is suspected, however. Dictated by: Ilan Bloom M.D. on 06/05/2024 at 16:22 Approved by: Ilan Bloom M.D. on 06/05/2024 at 16:38
== END ==
PROVIDERS: Family Provider Family Medicine; PCP Family Medicine; Referring Provider Physician Assistant; Visit Provider Physician Assistant
DX: C66.2 Malignant neoplasm of left ureter (principal); J90 Pleural effusion, not elsewhere classified; Z90.5 Acquired absence of kidney; D73.9 Disease of spleen, unspecified
CPT/HCPCS: 71260; 74177; Q9967